=== PATIENT | female | born 1975 | race Caucasian/White ===

== ENCOUNTER 2018-02-01 21:18 | Emergency (ER) | END 2018-02-02 00:21 | disposition home or self-care (01) ==

== ENCOUNTER 2019-03-23 11:28 | Day surgery (SDC) | payer BC ==
[2019-03-23] VITALS (12 sets, daily range): BP systolic 92–128; BP diastolic 53–75; PULSE 50–78; RESP 16–18; Ht 162.6 cm; Wt 75.4 kg
[~2019-03-23] VITALS: Ht 162.6 cm; Wt 75.4 kg
[~2019-03-23 11:28] MED LIST: ACETAMINOPHEN 500 MG TAB PO ONE; CETI10CA PO; IBUP-1542 PO
[2019-03-23] MEDS ORDERED: DESFLURANE 15 MIN ONE (12:00)
--- NOTE | 2019-03-23 12:22 | PREAC ---
Date/Time of Note Date/Time of Note DATE: 03/23/19 TIME: 12:20 Anesthesia Eval and Record Evaluation Time Pre-Procedure Interview DATE: 03/23/19 TIME: 12:20 Age 43 Sex female NPO: 8 hrs Preoperative diagnosis ИВАН 1 AND ИВАН 2 Planned procedure LEEP of the cervix Past Medical History Past Medical History: None Surgery & Anesthesia Issues No known issue Meds Anticoagulation: No Beta Jeanine within 24 hr: No Reason Beta Jeanine not given: Pt. not on B-Jeanine Discontinued Scripts Cetirizine Hcl* (Zyrtec*) 10 Mg Capsule, 10 MG PO DAILY, #10 TAB.CHEW Prov:MONTY ESTRADA PA-C 02/02/18 Ibuprofen* (Motrin*) 600 Mg Tab, 600 MG PO Q6H PRN for PAIN AND OR ELEVATED TEMP, #30 TAB Prov:JACQUELINE RIOS MD 11/14/15 Meds reviewed: Yes Allergies Coded Allergies: No Known Allergy (Unverified , 03/23/19) Allergies Reviewed: Yes Labs/Studies Labs Reviewed: Reviewed by anesthesiologist test: Negative (lab hcg test) Pre-procedure Exam Airway: Adequate mouth opening, Adequate thyromental dist Mallampati: Mallampati II Teeth: Normal Lung: Normal Heart: Normal ASA Physical Status ASA physical status: 1 Emergency: None Planned Anesthetic General/MAC: LMA Pre-operative Attestations Prior to commencing anesthesia and surgery, the patient was re-evaluated, there was verification of: *The patient's identity *The results of appropriate recent lab work and preoperative vital signs *The above evaluation not changing prior to induction *Anesthetic plan, risk benefits, alternative and complications discussed with patient/family; questions answered; patient/family understands, accepts and wishes to proceed. CLIFF BOTELLO Mar 23, 2019 12:22
[2019-03-23] MEDS ORDERED: morphine 2 MG INJ IV PRN ×2 (12:30)
[2019-03-23] MEDS ORDERED: FENTAnyl 50 MCG/ML VIAL IV PRN ×2 (12:30)
[2019-03-23] MEDS ORDERED: LABETALOL HCL 20MG INJ IV PRN (12:30)
[2019-03-23] MEDS ORDERED: HYDROmorphONE 1 MG/5 ML IV SYRINGE IV PRN ×3 (12:30)
[2019-03-23] MEDS ORDERED: DIPHENHYDRAMINE 50 MG INJ IV PRN (12:30)
[2019-03-23] MEDS ORDERED: OXYCODONE/ACETAMINOPHEN (5/325) TAB PO PRN ×2 (12:30)
[2019-03-23] MEDS ORDERED: MEPERIDINE 25 MG INJ IV PRN (12:30)
[2019-03-23] MEDS ORDERED: ALBUTEROL 0.083% (NEB) 2.5 MG/3 ML AMP HHN PRN (12:30)
[2019-03-23] MEDS ORDERED: ONDANSETRON 4 MG INJ IV PRN (12:30)
[2019-03-23] MEDS ORDERED: FENTAnyl 50 MCG/ML VIAL ONE (12:45)
[2019-03-23] MEDS ORDERED: ONDANSETRON 4 MG INJ ONE (12:45)
[2019-03-23] MEDS ORDERED: PROPOFOL 40 ML ONE (12:45)
[2019-03-23] MEDS ORDERED: MIDAZOLAM 1 MG/ML 2 ML INJ ONE (12:45)
[2019-03-23] MEDS ORDERED: LIDOCAINE 2% (SDV) 5 ML INJ ONE (12:45)
[2019-03-23] MEDS ORDERED: CEFAZOLIN 1 GM INJ ONE (12:45)
[2019-03-23] MEDS ORDERED: FAMOTIDINE 20 MG INJ ONE (12:46)
[2019-03-23] MEDS ORDERED: DEXAMETHASONE 4 MG/ML 5 ML INJ ONE (12:46)
[2019-03-23] MEDS ORDERED: STRONG IODINE 14 ML SOLUTION TOP SCH (13:00)
[2019-03-23] MEDS ORDERED: PHENYLephrine (100 MCG/ML) 10ML SYG ONE (13:52)
[2019-03-23] MEDS ORDERED: EPHEDrine 25 MG/5 ML SYG ONE (13:52)
[2019-03-23] MEDS ORDERED: KETOROLAC 30 MG INJ ONE (13:54)
--- NOTE | 2019-03-23 13:57 | OPPN ---
Date/Time of Note Date/Time of Note DATE: 03/23/19 TIME: 13:56 Operative Report Planned Procedure Procedure date Mar 23, 2019 Procedure(s) LEEP Performed by see signature line Grappler: VEDA TUBBS MD 2nd Grappler none Pre-procedure diagnosis cervical dysplasia [id number] Anesthesia Type: Uoybr3w general Post-Procedure Post-procedure diagnosis same Findings normal cervix, no lesions Estimated Blood Loss: minimal Specimen(s) cervix top hat Grafts/Implant(s) none Complication(s) none VEDA TUBBS MD Mar 23, 2019 13:57
--- NOTE | 2019-03-23 13:58 | PD.PPDC ---
DIRECTOR OF TESTING Discharge Instruction Condition [id number] Patient Condition: Mzzeb5d Fair Diet [id number] Diet: Ptjsi6w Resume Regular Diet Activity/Restrictions [id number] Activity: Ztggj9i Normal Activity May Shower Follow-up Follow-up with Physician: 2, Week/Weeks Return to clinic for [id number] [employer] Instructions: Zukin9i Fever greater than 101 Chills Worsening abdominal pain Excessive Vaginal Bleeding More than 2 pads per hour Unable to tolerate diet [id number] OB Instructions: Qjpip7n Breast Tenderness Depression Blurried Vision Headache [id number] Surgical Instructions: Upwhk8q Incisional Drainage Incisional Redness VEDA TUBBS MD Mar 23, 2019 13:58
--- NOTE | 2019-03-23 19:17 | PAC ---
Date/Time of Note Date/Time of Note DATE: 03/23/19 TIME: 19:16 Post-Anesthesia Notes Post-Anesthesia Note Last documented vital signs Vital Signs Date Temp Pulse Resp B/P (MAP) Pulse Ox O2 O2 Flow FiO2 Time Delivery Rate 03/23/19 97.5 51 16 128/67 97 14:56 (87) 03/23/19 Room Air 14:50 03/23/19 98 60 16 92/53 100 face mask 6.0 14:11 1404 8L Activity: WNL Respiratory function: WNL Cardiovascular function: WNL Mental status: Baseline Pain reasonably controlled: Yes Hydration appropriate: Yes Nausea/Vomiting absent: Yes CLIFF BOTELLO Mar 23, 2019 19:17
--- NOTE | 2019-03-24 04:33 | OPR ---
DATE OF OPERATION: 03/23/2019 PREOPERATIVE DIAGNOSIS: Cervical dysplasia. POSTOPERATIVE DIAGNOSIS: Cervical dysplasia. PROCEDURE: Loop electrosurgical excision procedure/LEEP. SURGEON: Veda Moran MD ANESTHESIA: General. ESTIMATED BLOOD LOSS: Minimal. PATHOLOGY: Portion of the cervix. FINDINGS: Bimanual examination revealed normal sized midline uterus with normal adnexa masses palpat ed. Cervix did not appear to have any gross masses. Lugol's solution revealed areas of nonreuptake around the squamocolumnar junction, ectocervix with anterior and posterior portion, endocervical spec imen from . DESCRIPTION OF PROCEDURE: After explaining the risks, benefits and alternatives, the patient consent ed and signed on the chart, the patient was taken to the OR where patient was placed under anesthesia without difficulty. The patient was then draped in the usual sterile fashion and placed in a dorsal lithotomy position. Preoperative bimanual examination revealed findings noted above. A preoperativ e urinary test was negative. At this time, a large Graves' speculum was then placed in the patient's vagina. Lugol solution was painted entire cervix and vaginal wall. Areas of the nonreupt tono were noted to be around the squamocolumnar junction. A large loop electrode was used to remove t he top portion of the cervix and sent to pathology. The bed of the excised cervix tissue along the c ervix was cauterized using the rollerball. Good hemostasis was noted. All instruments were removed from the patient's vagina. At this point, the patient tolerated the procedure well without complicat ions and was taken to the recovery room in stable condition. Dictated By: VEDA DAVIS/KARINA Conf#: [id number] DID#: [id number]
== END 2019-03-23 15:44 | disposition home or self-care (01) ==
LOC: SDS 11:28
PROVIDERS: ATTEND Obstetrics & Gynecology
DX: N87.0 Mild cervical dysplasia (principal); N72 Inflammatory disease of cervix uteri
CPT/HCPCS: 57522; 84702; 84703; 85025; 86850; 86900; 86901; 88305; J0690; J1100; J1885; J2250; J2370; J2405; J3010